=== PATIENT | male | born 1955 | race Caucasian/White ===

== ENCOUNTER 2016-05-27 10:59 | Inpatient (IN) ==
[2016-05-27] MEDS ORDERED: Ipratropium/Albuterol Neb 3 ML IH ONE (11:28)
[2016-05-27] MEDS ORDERED: 0.9 % Sodium Chloride 1,000 ML IVC ONE (11:28)
[2016-05-27] MEDS ORDERED: methylPREDNISolone 125 MG/2 ML VIAL IVP ONE (11:28)
--- NOTE | 2016-05-27 11:35 | Emergency Department Note ---
Disposition Clinical Impression: Acute exacerbation of chronic obstructive airways disease, Bronchitis, Hypoxia Disposition: Admitted As Inpatient Condition: Fair Referrals: NO,PCP [Primary Care Provider] - Forms: ED Satisfaction Letter Time of Disposition: 14:03 SOB HPI - General Chief Complaint: ED Shortness of Breath/Dyspnea Stated Complaint: SOB/Cough Time Seen by Provider: 05/27/16 11:12 Source: patient, EMS Mode of arrival: EMS Limitations: no limitations Nursing Notes Reviewed: Yes Vital Signs Reviewed: Yes - History of Present Illness Pt Subjective Complaint: shortness of breath, cough Onset (ago): month(s) (This is been going on for several months but is worsened over the past week after he quit smoking.) Severity: severe Consistency/Duration: constant, gradually worsening Improves with: nothing Worsens with: exertion, coughing Known history of: COPD Associated symptoms: Reports: chest pain (But he describes that as a soreness to the chest from coughing), fever (But has not taken his temperature with a thermometer.), cough, sputum production Treatment prior to arrival: none Cough present: Yes Cough Description: Productive Cough Frequency: Persistent - Related Data Home oxygen amount: none Allergies Allergy/AdvReac Type Severity Reaction Status Date / Time No Known Allergies Allergy Verified 05/27/16 11:00 All systems ED: reviewed and negative except as stated. Constitutional: Reports: fever, chills ENT ED: Denies: ear pain, throat pain, congestion Cardiovascular: Reports: chest pain (Soreness). Denies: palpitations Respiratory: Reports: cough, dyspnea, wheezes Gastrointestinal: Denies: abdominal pain, nausea, vomiting Musculoskeletal: Denies: back pain Integumentary: Denies: rash Neurological: Denies: headache Past Medical History - Past Medical History Attestation: Yes The following information was validated with the patient. Source: patient, nursing notes reviewed Medical history: Reports: COPD Surgical history: Reports: non-contributory Psychiatric history: Reports: no psych history - Social History Smoking Status: Former smoker Smokeless Tobacco Status: No Alcohol use: Reports: occasionally Drug use: Reports: none Physical Exam - General Limitations: no limitations General appearance: alert, in no apparent distress (Except frequent cough) - Head Head exam: atraumatic, normocephalic - Eye Eye exam: Present: normal appearance, PERRL, EOMI - ENT ENT exam: normal exam, normal oropharynx, mucous membranes moist, normal external ear exam - Neck Neck exam: Present: normal inspection, full ROM, trachea midline - Chest Chest inspection: Present: normal inspection, symmetric chest wall rise, tenderness (There is tenderness across the anterior chest.) - Respiratory Respiratory exam: Present: wheezes (Mild scattered). Absent: respiratory distress - Cardiovascular Cardiovascular exam: Present: regular rate, normal rhythm, normal heart sounds - Abdominal Exam Abdominal exam: Present: soft, Non-Tender, normal bowel sounds - Extremities Exam Extremities exam: Present: normal inspection, full ROM. Absent: pedal edema - Back Exam Back exam: Present: normal inspection, full ROM - Neurological Exam Neurological exam: Present: alert, oriented X3 - Psychiatric Psychiatric exam: Present: normal affect, normal mood - Skin Skin exam: Present: warm, dry. Absent: rash Course Course Narrative: Patient presents with cough and shortness of breath. He is a heavy smoker who quit within the last week. I am doing a shortness of breath workup on the patient. I will get him some breathing treatments as well. Disposition will be based on diagnostic results and reevaluation. - Reevaluation(s) Reevaluation #1: Labs and x-ray look okay. However we got the patient up to ambulate and his sats dropped to 82% and his heart rate went up to the 125 range. He appeared short of breath. We will need to admit him for bronchitis with bronchospasm and hypoxia. Time: 14:03 - Consultations Consultation #1: I discussed the case with the hospitalist, Dr. Woody. She has accepted the patient for admission to the hospital. Time: 14:12 Vital Signs Temperature 98.5 F 05/27/16 11:01 Pulse Rate 89 05/27/16 11:01 Respiratory Rate 16 05/27/16 11:01 Blood Pressure 137/84 05/27/16 11:01 O2 Sat by Pulse Oximetry 92 L 05/27/16 11:01 Temperature 98.5 F 05/27/16 11:01 Pulse Rate 90 05/27/16 13:05 Respiratory Rate 16 05/27/16 13:05 Blood Pressure 154/78 05/27/16 13:05 O2 Sat by Pulse Oximetry 93 L 05/27/16 13:05 Oxygen Delivery Oxygen Delivery Nasal Cannula Shortness of Breath/Dyspnea - Lab Data Lab results reviewed: Yes I reviewed the patient's lab results. Result diagrams: 05/27/16 12:24 05/27/16 12:24 Lab Results 05/27/16 05/27/16 05/27/16 Range/Units 12:24 12:24 12:24 WBC 16.5 H (4.3-11.1) K/mcL RBC 5.01 (4.19-5.50) M/mcL Hgb 15.3 (12.9-16.9) g/dL Hct 46.3 (37.5-50.1) % MCV 92.4 (83.0-100.0) fL MCH 30.5 (28.0-33.3) pg MCHC 33.0 (31.6-35.5) g/dL RDW 12.5 (11.5-14.5) % Plt Count 299 (140-400) K/mcL MPV 9.3 L (9.4-12.4) fL Seg Neutrophils % 64.0 % Band Neutrophils % 12.0 H (0-4) % Lymphocytes % 10.0 % Monocytes % 14.0 % Neutrophils # 12.5 H (1.6-8.9) K/mcL Lymphocytes # 1.7 (0.6-4.6) K/mcL Monocytes # 2.3 H (0.0-1.3) K/mcL Smudge Cells Present A (Not Present) Platelet Estimate Normal (Normal) Sodium 139 (136-145) mEq/L Potassium 3.9 (3.5-4.5) mEq/L Chloride 103 (98-109) mEq/L Carbon Dioxide 27 (19-29) mEq/L BUN 10 (8-26) mg/dL Creatinine 0.93 (0.72-1.25) mg/dL Est GFR ( Amer) > 60 (> 60) Est GFR (Non-Af Amer) > 60 (> 60) BUN/Creatinine Ratio 11 (6-26) Glucose 126 H (70-99) mg/dL Calculated Osmolality 289 (280-300) Calcium 9.8 (8.6-10.8) mg/dL Troponin I 0.01 (0-0.03) ng/mL B-Natriuretic Peptide (0-100) pg/mL 05/27/16 Range/Units 12:25 WBC (4.3-11.1) K/mcL RBC (4.19-5.50) M/mcL Hgb (12.9-16.9) g/dL Hct (37.5-50.1) % MCV (83.0-100.0) fL MCH (28.0-33.3) pg MCHC (31.6-35.5) g/dL RDW (11.5-14.5) % Plt Count (140-400) K/mcL MPV (9.4-12.4) fL Seg Neutrophils % % Band Neutrophils % (0-4) % Lymphocytes % % Monocytes % % Neutrophils # (1.6-8.9) K/mcL Lymphocytes # (0.6-4.6) K/mcL Monocytes # (0.0-1.3) K/mcL Smudge Cells (Not Present) Platelet Estimate (Normal) Sodium (136-145) mEq/L Potassium (3.5-4.5) mEq/L Chloride (98-109) mEq/L Carbon Dioxide (19-29) mEq/L BUN (8-26) mg/dL Creatinine (0.72-1.25) mg/dL Est GFR ( Amer) (> 60) Est GFR (Non-Af Amer) (> 60) BUN/Creatinine Ratio (6-26) Glucose (70-99) mg/dL Calculated Osmolality (280-300) Calcium (8.6-10.8) mg/dL Troponin I (0-0.03) ng/mL B-Natriuretic Peptide 23 (0-100) pg/mL - Radiology Data Radiology results reviewed: Yes I reviewed the patient's radiology results. - EKG Data EKG attestation: Yes I reviewed and interpreted this EKG. EKG shows normal: Reports: sinus rhythm, axis, intervals, QRS complexes, ST-T waves Rate: Reports: normal Interpretation: Reports: no acute changes
[2016-05-27 12:35] LABS: Hematocrit 46.3 % (37.5-50.1); Hemoglobin 15.3 g/dL (12.9-16.9); Mean Corpuscular Hemoglobin 30.5 pg (28.0-33.3); Mean Corpuscular Volume 92.4 fL (83.0-100.0); Mean Platelet Volume 9.3 fL (9.4-12.4); Platelet Count 299 K/mcL (140-400); Red Blood Count 5.01 M/mcL (4.19-5.50); Red Cell Distribution Width 12.5 % (11.5-14.5)
[2016-05-27 12:47] LABS: BUN/Creatinine Ratio 11 (6-26); Blood Urea Nitrogen 10 mg/dL (8-26); Calcium 9.8 mg/dL (8.6-10.8); Carbon Dioxide 27 mEq/L (19-29); Chloride 103 mEq/L (98-109); Glucose 126 mg/dL (70-99); Osmolality,Calculated 289 (280-300); Potassium 3.9 mEq/L (3.5-4.5); Sodium 139 mEq/L (136-145); eGFR For African Americans > 60 (> 60); eGFR For Non-African Americans > 60 (> 60)
[2016-05-27 12:57] LABS: Lymphocytes # 1.7 K/mcL (0.6-4.6); Monocytes # 2.3 K/mcL (0.0-1.3); Neutrophils # 12.5 K/mcL (1.6-8.9); Platelet Estimate Normal (Normal); Smudge Cells Present (Not Present)
[2016-05-27] MEDS ORDERED: Levofloxacin 750 MG/150 ML 750 MG/150 ML BAG IVPB ONE (14:01)
--- NOTE | 2016-05-27 17:19 | Internal Med History&Physical ---
Date of Encounter: 05/27/16 Time of Encounter: 17:16 Assessment and Plan (1) PVD (peripheral vascular disease) Current visit: Yes Status: Acute Pedal pulsations intact. Continue aspirin. (2) Acute exacerbation of chronic obstructive airways disease Current visit: Yes Status: Acute Patient would be started on Solu-Medrol [id number] nebulizer treatments. He is having 12% bands and the white count of 16,000. No obvious infiltrate on chest x-ray. He will receive Levaquin for acute bronchitis. Repeat to view x- ray after hydration in the ER to reassess for pneumonia. He is having a nodular density in the right costophrenic angle outpatient follow-up with CT scan Internal Medicine - H&P: HPI Chief complaint: SOB History of present illness: Mr. Bolton is a 61 year old male with a history of PVD s/p bypass and COPD not one home o2 and not receiving any inhalers because he could not afford, who had stopped smoking 10 days ago them presents to the emergency room today with the main complain of shortness of breath. For the past few days patient has been having productive cough of yellowish sputum worsening shortness of breath to the point where he is short of breath even addressed in addition to notable chest wheezing chills. He denies any recent hospitalization. No recent antibiotic use. Past Med Surg Social Fam HX - Past Medical History Medical history: COPD Psychiatric history: no psych history - Past Surgical History Surgical History: non-contributory - Social History Smoking Status: Former smoker Smokeless Tobacco Status: No Alcohol use: occasionally Drug use: none - Family History Mother Living Status: Age at : 70 Cause of : Cancer Hx Family Cardiac Disorders: No Hx Family Cancer: Yes (Brain cancer) Father Living Status: Age at : 55 Cause of : Lung Cancer Hx Family Cardiac Disorders: Yes Hx Family Cancer: Yes Internal Medicine - H&P: Meds Allergies No Known Allergies Allergy (Verified 05/27/16 11:00) All Systems PM: A 10-system review of systems was performed and is negative for pertinent findings except as documented above in the HPI. Review of systems: 10 point review of systems is negative except for HPI - Constitutional Vitals: Temp Pulse Resp BP Pulse Ox 98.8 F 84 18 121/73 91 L 05/27/16 15:02 05/27/16 15:02 05/27/16 15:02 05/27/16 15:02 05/27/16 15:02 Exam: Gen.: patient is alert and oriented times 3 not in distress. Cardiac: normal S1 S2 no additional sounds or murmur. Chest: Diminished air entry, expiratory wheezing abdomen: soft nontender nondistended normal bowel sounds no focal neurological deficits lower extremity lax calf muscles no swelling, intact pedal pulsations Internal Med - H&P Results - Labs CBC & Chem 7: 05/27/16 12:24 05/27/16 12:24
[2016-05-27] MEDS ORDERED: Ipratropium/Albuterol Neb 3 ML IH PRN (17:22)
[2016-05-27] MEDS: methylPREDNISolone 125 MG/2 ML VIAL IVP SCH (17:55)
[2016-05-27] MEDS: Ipratropium/Albuterol Neb 3 ML IH SCH ×2 (20:16→23:44)
--- NOTE | 2016-05-27 20:37 | Electrocardiograph Report ---
[facility] [employer] Test Date: 2016-05-27 Pat Name: Lloyd Bolton Department: 104 Room: 3B23 Gender: M Director Payer: : 1955 Requested By: Balbir Hurtado Order Number: [id number] Reading MD: Slime Salmeron DO Measurements Intervals [place] Rate: 90 P: 80 MD: 144 QRS: 49 QRSD: 80 T: 76 QT: 325 QTc: 372 Interpretive Statements SINUS RHYTHM Electronically Signed On 05-27-2016 20:36:08 EST by Slime Salmeron DO
[2016-05-27] MEDS: *HR* Heparin 5,000 UNIT/ML VIAL SQ SCH (21:43)
[2016-05-27] MEDS: Famotidine 20 MG TABLET PO SCH (21:43)
[2016-05-28] MEDS: methylPREDNISolone 125 MG/2 ML VIAL IVP SCH ×4 (00:14→17:07)
[2016-05-28] MEDS: *HR* OxyCODONE/APAP 5/325 TABLET PO PRN ×3 (00:14→20:43)
[2016-05-28] MEDS: Ipratropium/Albuterol Neb 3 ML IH SCH ×6 (04:12→23:47)
[2016-05-28 04:40] LABS: Basophils % 0.1 %; Hematocrit 44.2 % (37.5-50.1); Hemoglobin 14.7 g/dL (12.9-16.9); Immature Granulocytes % 0.8 % (0-4); Lymphocytes # 1.2 K/mcL (0.6-4.6); Lymphocytes % 7.4 %; Mean Corpuscular HGB Conc 33.3 g/dL (31.6-35.5); Mean Corpuscular Hemoglobin 30.2 pg (28.0-33.3); Mean Corpuscular Volume 90.9 fL (83.0-100.0); Mean Platelet Volume 9.9 fL (9.4-12.4); Monocytes # 0.4 K/mcL (0.0-1.3); Monocytes % 2.8 %; Neutrophils # 13.9 K/mcL (1.6-8.9); Platelet Count 320 K/mcL (140-400); Red Blood Count 4.86 M/mcL (4.19-5.50); Red Cell Distribution Width 12.4 % (11.5-14.5); Segmented Neutrophils % 88.9 %
[2016-05-28 05:03] LABS: BUN/Creatinine Ratio 15 (6-26); Blood Urea Nitrogen 14 mg/dL (8-26); Calcium 10.3 mg/dL (8.6-10.8); Carbon Dioxide 21 mEq/L (19-29); Chloride 102 mEq/L (98-109); Glucose 227 mg/dL (70-99); Osmolality,Calculated 294 (280-300); Sodium 138 mEq/L (136-145); eGFR For African Americans > 60 (> 60); eGFR For Non-African Americans > 60 (> 60)
[2016-05-28 05:43] LABS: Hypersegmented Neutrophils Present (Not Present); Platelet Clumps Few (Not Present); Toxic Granulation Present (Not Present)
[2016-05-28] MEDS: *HR* Heparin 5,000 UNIT/ML VIAL SQ SCH ×2 (06:25→17:07)
[2016-05-28] MEDS: Aspirin Enteric Coated 81 MG Tablet PO SCH (07:59)
[2016-05-28] MEDS: Famotidine 20 MG TABLET PO SCH ×2 (08:00→20:43)
[2016-05-28] MEDS: Levofloxacin 750 MG/150 ML 750 MG/150 ML BAG IVPB SCH (08:02)
[2016-05-28] MEDS ORDERED: Aspirin Enteric Coated 325 MG Tablet PO SCH (09:00)
[2016-05-28] MEDS ORDERED: *HR* Acetaminophen w/Cod 300-30 mg 1 TAB TABLET PO PRN (10:59)
--- NOTE | 2016-05-28 11:01 | Internal Med Progress Note ---
Date of Encounter: 05/28/16 Time of Encounter: 09:00 - Assessment and plan (1) Acute exacerbation of chronic obstructive airways disease Current Visit: Yes Status: Acute Assessment and plan: Former heavy smoker. Aeration poor with moderate respiratory distress noted. Continue supplemental oxygenation. Mucolytic's added to his regimen. Continue levofloxacin. Leukocytosis trending down. Chest x-ray negative however did reveal nodules given his lengthy and heavy smoking history, will obtain a chest CT. Tessalon Perles and pain medication added. Patient endorsing pain with persistent coughing. ITS Impressions Chest X-Ray 05/27/16 11:29 IMPRESSION: 1. No acute radiographic finding to account for patient's shortness of breath. 2. Nodular density in the right lateral costophrenic sulcus. Recommend CT of the chest for further evaluation to exclude a lung nodule. 3. Emphysema D/ / Johny Jones MD / Johny Jones MD Interpreting Provider: Johny Jones MD (2) Bronchitis Current Visit: Yes Status: Acute (3) Former heavy tobacco smoker Current Visit: Yes Status: Chronic Assessment and plan: Patient stating he originally smoked 2-3 packs per day then approximately one year ago he went down to 1 pack per day, he currently states that he has not smoked in 10 days. (4) Leukocytosis Current Visit: Yes Status: Acute Assessment and plan: Suspect stress related/viral bronchitis. No indications of sepsis. (5) Insurance coverage problems Current Visit: Yes Status: Acute Assessment and plan: Patient stating he does not currently have insurance. He states he cannot afford any COPD medications. support services manager on board. (6) Acute respiratory failure with hypoxia Current Visit: Yes Status: Acute Assessment and plan: Continue supplemental oxygenation as needed, suspect patient will need to go home with oxygen, we will continue to monitor (7) PVD (peripheral vascular disease) Current Visit: Yes Status: Chronic Assessment and plan: Distal pulses strong. - Subjective Interval history: Patient seen and examined. On examination, patient is sitting upright in bed. Patient stating he has full body shaking that is uncontrollable. Patient stating he is shaking "like when I used to drink a bottle." He states he has not consumed alcohol recently. Patient continues to endorse productive cough and shortness of breath above his norm. - Constitutional Vitals: Temp Pulse Resp BP Pulse Ox 97.4 F L 89 16 127/63 89 L 05/28/16 07:04 05/28/16 07:04 05/28/16 07:36 05/28/16 07:04 05/28/16 07:36 General appearance: Present: mild distress (moderate), A&O X 3, pleasant, answers questions appropriately - Head Head exam: Present: atraumatic, normocephalic - Eye Eye exam: Present: PERRL, conjuntiva pink, sclera anicteric Pupils: Present: PERRL - Neck Neck exam general surgery: Present: supple, trachea midline. Absent: lymphadenopathy - Respiratory Respiratory exam: Present: accessory muscle use, decreased breath sounds, prolonged expiratory phase, respiratory distress, wheezes. Absent: rales, rhonchi - Cardiovascular Cardiovascular exam: Present: RRR, +S1, +S2, tachycardia. Absent: diastolic murmur, gallop, rubs, systolic murmur - GI/Abdominal GI/Abdominal exam: Present: normal bowel sounds, soft, no peritoneal signs. Absent: distended, tenderness - Extremities Exam Extremities exam: Present: warm, radial pulses palpable and symetrical. Absent : calf tenderness, cyanotic, pedal edema - Neurological Exam Neurological exam: Present: alert, CN II-XII intact, oriented X3, no focal deficits, strengths equal and symetr throughout. Absent: pronater drift, facial droop, speech deficit - Expanded Neurological Exam Neurological exam expanded: Present: tremor - Skin Skin exam: Present: dry, intact, pallor, warm Internal Medicine: Result - Labs CBC & Chem 7: 05/28/16 03:52 05/28/16 03:52 Labs: Short CBC 05/28/16 Range/Units 03:52 WBC 15.6 H (4.3-11.1) K/mcL Hgb 14.7 (12.9-16.9) g/dL Hct 44.2 (37.5-50.1) % Plt Count 320 (140-400) K/mcL Neutrophils # 13.9 H (1.6-8.9) K/mcL BMP 05/28/16 03:52 Sodium 138 Potassium 4.0 Chloride 102 Carbon Dioxide 21 BUN 14 Creatinine 0.93 Glucose 227 H Calcium 10.3 Cardiac Enzymes 05/28/16 Range/Units 03:52 Troponin I 0.00 (0-0.03) ng/mL Consult Discharge Plan - Plan Referrals: NO,PCP [Primary Care Provider] -
[2016-05-28] MEDS: clonazePAM 0.5 MG TABLET PO SCH ×2 (13:06→20:43)
[2016-05-28] MEDS: Benzonatate 100 MG CAPSULE PO SCH ×2 (17:07→20:43)
[2016-05-29] MEDS: *HR* Heparin 5,000 UNIT/ML VIAL SQ SCH ×4 (00:18→22:14)
[2016-05-29] MEDS: methylPREDNISolone 125 MG/2 ML VIAL IVP SCH ×4 (00:18→17:38)
[2016-05-29 00:51] LABS: Hemoglobin A1C 5.3 %
[2016-05-29] MEDS: Ipratropium/Albuterol Neb 3 ML IH SCH ×6 (03:48→23:34)
[2016-05-29] MEDS: Levofloxacin 750 MG/150 ML 750 MG/150 ML BAG IVPB SCH (08:46)
[2016-05-29] MEDS: Aspirin Enteric Coated 81 MG Tablet PO SCH (08:47)
[2016-05-29] MEDS: Benzonatate 100 MG CAPSULE PO SCH ×3 (08:47→20:33)
[2016-05-29] MEDS: Famotidine 20 MG TABLET PO SCH ×2 (08:47→20:33)
[2016-05-29] MEDS: clonazePAM 0.5 MG TABLET PO SCH ×2 (08:47→20:34)
[2016-05-29] MEDS: *HR* OxyCODONE/APAP 5/325 TABLET PO PRN ×3 (08:48→22:15)
--- NOTE | 2016-05-29 12:35 | Internal Med Progress Note ---
Date of Encounter: 05/29/16 Time of Encounter: 08:45 - Assessment and plan (1) Acute exacerbation of chronic obstructive airways disease Current Visit: Yes Status: Acute Assessment and plan: Chest CT revealing severe emphysema as well as chronic scarring. No acute processes. Yesterday, posterior lung bravo did not reveal any aeration on examination. Today, few scattered coarse expiratory wheezes are present. Patient stating he feels as if he can take deeper breaths. He remains on 2 L per nasal cannula, we will likely need to go home on oxygen. Spoke to case management social worker today, it does appear as if he has insurance at this time. We will continue pulmonary toilet and observe overnight. Possible discharge tomorrow or Thursday pending clinical outcomes. ITS Impressions Chest CT 05/28/16 12:15 IMPRESSION: 1. Severe emphysematous changes. 2. Chronic appearing scarring or atelectasis is noted at the right lung base and to a lesser extent left lung base as well as in the posterior upper lobe regions. The right lung base opacity likely explains the finding at chest x-ray. D/ / Harjinder Pratt MD / Harjinder Pratt MD Interpreting Provider: Harjinder Pratt MD 05/28/16 Former heavy smoker. Aeration poor with moderate respiratory distress noted. Continue supplemental oxygenation. Mucolytic's added to his regimen. Continue levofloxacin. Leukocytosis trending down. Chest x-ray negative however did reveal nodules given his lengthy and heavy smoking history, will obtain a chest CT. Tessalon Perles and pain medication added. Patient endorsing pain with persistent coughing. ITS Impressions Chest X-Ray 05/27/16 11:29 IMPRESSION: 1. No acute radiographic finding to account for patient's shortness of breath. 2. Nodular density in the right lateral costophrenic sulcus. Recommend CT of the chest for further evaluation to exclude a lung nodule. 3. Emphysema D/ / Johny Jones MD / Johny Jones MD Interpreting Provider: Johny Jones MD (2) Bronchitis Current Visit: Yes Status: Acute (3) Former heavy tobacco smoker Current Visit: Yes Status: Chronic Assessment and plan: Patient stating he originally smoked 2-3 packs per day then approximately one year ago he went down to 1 pack per day, he currently states that he has not smoked in 10 days. (4) Leukocytosis Current Visit: Yes Status: Acute Assessment and plan: Suspect stress related/viral bronchitis. No indications of sepsis. (5) Insurance coverage problems Current Visit: Yes Status: Acute Assessment and plan: Preliminarily it appears as if he does have insurance. Will write for COPD medications today to start the process as I suspect he will need several prior authorizations. oil well services dispatcher on board. (6) Acute respiratory failure with hypoxia Current Visit: Yes Status: Acute Assessment and plan: Continue supplemental oxygenation as needed, suspect patient will need to go home with oxygen, we will continue to monitor (7) PVD (peripheral vascular disease) Current Visit: Yes Status: Chronic Assessment and plan: Distal pulses strong. - Subjective Interval history: Patient seen and examined. On examination, patient is sitting upright in bed. Patient stating he has full body shaking has gotten better. Patient is sitting in shortness of breath is improving and feels as if he can "breathe deeper" then yesterday. He is endorsing a normal appetite. - Constitutional Vitals: Temp Pulse Resp BP Pulse Ox 97.3 F L 60 18 117/65 94 L 05/29/16 11:54 05/29/16 11:54 05/29/16 11:54 05/29/16 11:54 05/29/16 11:54 General appearance: Present: mild distress, A&O X 3, pleasant, answers questions appropriately - Head Head exam: Present: atraumatic, normocephalic - Eye Eye exam: Present: PERRL, conjuntiva pink, sclera anicteric Pupils: Present: PERRL - Neck Neck exam general surgery: Present: supple, trachea midline. Absent: lymphadenopathy - Respiratory Respiratory exam: Present: accessory muscle use, decreased breath sounds, prolonged expiratory phase, respiratory distress, wheezes. Absent: rales, rhonchi - Cardiovascular Cardiovascular exam: Present: RRR, +S1, +S2. Absent: diastolic murmur, gallop, rubs, systolic murmur - GI/Abdominal GI/Abdominal exam: Present: normal bowel sounds, soft, no peritoneal signs. Absent: distended, tenderness - Extremities Exam Extremities exam: Present: warm, radial pulses palpable and symetrical. Absent : calf tenderness, cyanotic, pedal edema - Neurological Exam Neurological exam: Present: alert, CN II-XII intact, oriented X3, no focal deficits, strengths equal and symetr throughout. Absent: pronater drift, facial droop, speech deficit - Skin Skin exam: Present: dry, intact, normal color, warm Internal Medicine: Result - Labs CBC & Chem 7: 05/28/16 03:52 05/28/16 03:52 Consult Discharge Plan - Plan Referrals: NO,PCP [Primary Care Provider] -
--- NOTE | 2016-05-29 12:41 | Discharge Summary ---
Date of Encounter: 05/30/16 Time of Encounter: 09:30 - Discharge Diagnosis (1) Acute exacerbation of chronic obstructive airways disease Priority: Primary Status: Acute Comments: Chest CT revealing severe emphysema as well as chronic scarring. No acute processes. His aeration has improved quite a bit over the course of his 4 day admission. He did qualify for continuous oxygen at home. He does have insurance and his medications will be prior authorized today if possible. (2) Bronchitis Priority: Primary Status: Acute (3) Former heavy tobacco smoker Priority: Secondary Status: Chronic Comments: Patient stating he originally smoked 2-3 packs per day then approximately one year ago he went down to 1 pack per day, he stated that he has not smoked in the 10 days prior to presentation. (4) Leukocytosis Priority: Primary Status: Acute Comments: Suspect stress related/viral bronchitis. Trended down. No indications of sepsis. Qualifiers: Leukocytosis type: unspecified Qualified Code(s): D72.829 - Elevated white blood cell count, unspecified (5) Insurance coverage problems Priority: Primary Status: Acute Comments: (Preliminarily it appears as if he does have insurance. client services associate on board during this admission. (6) Acute respiratory failure with hypoxia Priority: Primary Status: Acute Comments: He qualified for 2 L per nasal cannula continuously at home (7) PVD (peripheral vascular disease) Priority: Secondary Status: Chronic Comments: Distal pulses strong, follow-up outpatient. - Discharge Medications Prescriptions: OxyCODONE/APAP 5/325 [Percocet 5/325 MG] 1 each PO Q6HR PRN #20 tablet PRN Reason: Pain Budesonide/Formoterol 160/4.5 [Symbicort 160/4.5] 2 puff IH BIDR #1 hfa.aer.ad ClonazePAM [Klonopin] 0.5 mg PO BID PRN #14 tablet PRN Reason: Anxiety Guaifenesin [Guaifenesin ER] 1,200 mg PO BID #14 tab.er.12h Levofloxacin 750 mg PO DAILY #2 tablet Oxygen 2 l IN CONT #1 each PredniSONE 10 mg PO DAILY #41 tablet Home Medications: Acetaminophen [Tylenol Arthritis] 650 mg PO BID PRN 05/28/16 [History] Aspirin/Calcium Carbonate/Mag [Aspirin Buffered 325 mg Tab] 325 mg PO DAILY [History] Melatonin/Pyridoxine HCl (B6) [Melatonin 5 mg Tablet] 10 mg PO HS PRN 05/28/16 [ History] Multivit-Min/FA/Lycopen/Lutein [Centrum Silver Men Tablet] 1 tab PO DAILY [History] [place]-3/Dha/Epa/Fish Oil [Fish Oil 1,000 mg Softgel] 1,000 mg PO DAILY 05/28/16 [History] Budesonide/Formoterol 160/4.5 [Symbicort 160/4.5] 2 puff IH BIDR #1 hfa.aer.ad 05/29/16 [Rx] Guaifenesin [Guaifenesin ER] 1,200 mg PO BID #14 tab.er.12h 05/29/16 [Rx] Oxygen 2 l IN CONT #1 each 05/29/16 [Rx] PredniSONE 10 mg PO DAILY #41 tablet 05/29/16 [Rx] ClonazePAM [Klonopin] 0.5 mg PO BID PRN #14 tablet 05/30/16 [Rx] Levofloxacin 750 mg PO DAILY #2 tablet 05/30/16 [Rx] OxyCODONE/APAP 5/325 [Percocet 5/325 MG] 1 each PO Q6HR PRN #20 tablet 05/30/16 [Rx] Allergies/Adverse Reactions: Allergies No Known Allergies Allergy (Verified 05/27/16 11:00) Procedures/tests Complete & Pending: Procedures Performed prior 72 hours Category Date Time Status CT chest w con [CT] Routine Cat Scan 05/28/16 12:15 Completed Date of admission: 05/27/16 17:11 Primary care physician: PCP NO Consults: 05/27/16 15:31 Consult to Credentialing Coordinator [CONS] Routine Reason for SW Consult: Discharge planning, self pay, possible home O2, cannot afford COPD medications Discharging clinician: Marybeth Nguyen Anticipated date of discharge: 05/30/16 (with home oxygen) - Patient Status Disposition: Home, Self-Care Condition: Fair Functional capacity at discharge: independent ambulation Overall status at discharge: patient is progressing back to baseline - Discharge Instructions Follow Up With: Clinic, [facility] Residency [Other] Additional Instructions: Follow-up with new primary care provider in one to 2 weeks - Diet and Activity Activity: increase activity as tolerated Diet: low salt diet Hospital course: Mr. Bolton is a 61 year old male with past medical history of PVD status post bypass, COPD not on home medications as he does not have insurance and cannot afford the medications. Patient was a former heavy smoker and stated that he stopped smoking 10 days prior to presentation. He presented to the emergency room for chief complaint shortness of breath times several days associated with productive cough with yellowish sputum. Patient was noted to be hypoxic in the emergency department and started on supplemental oxygenation. Chest x-ray negative for acute processes but did note an abnormal density so a chest CT was performed which revealed severe emphysema and chronic scarring with no acute processes. Patient was admitted to the hospitalist service for further evaluation and management. He was treated for COPD exacerbation. Initially upon admission, his breath sounds were not audible in the posterior lung field. He was admitted and observed over the course of 4 days and on day of discharge , his aeration had improved greatly. Mild leukocytosis that trended down. Blood cultures negative. He remained hemodynamically stable and did not indicate any signs of acute infection or sepsis during this admission. Social work was brought on board and the patient now apparently does have insurance. He did qualify for supplemental oxygenation upon discharge. He was started on controller medications and proper prior authorizations were attempted on day of discharge. He was treated with 3 days of IV levofloxacin while admitted and sent home with 2 additional doses to complete a 5 day course for his exacerbation. He was discharged home in stable condition with close outpatient follow-up recommended. ITS Impressions Chest X-Ray 05/27/16 11:29 IMPRESSION: 1. No acute radiographic finding to account for patient's shortness of breath. 2. Nodular density in the right lateral costophrenic sulcus. Recommend CT of the chest for further evaluation to exclude a lung nodule. 3. Emphysema D/ / Johny Jones MD / Johny Jones MD Interpreting Provider: Johny Jones MD Chest CT 05/28/16 12:15 IMPRESSION: 1. Severe emphysematous changes. 2. Chronic appearing scarring or atelectasis is noted at the right lung base and to a lesser extent left lung base as well as in the posterior upper lobe regions. The right lung base opacity likely explains the finding at chest x-ray. D/ / Harjinder Pratt MD / Harjinder Pratt MD Interpreting Provider: Harjinder Pratt MD - Time Spent with Patient Total time spent providing and/or coordinating discharge services: - Constitutional Vitals: Temp Pulse Resp BP Pulse Ox 97.3 F L 60 18 117/65 94 L 05/29/16 11:54 05/29/16 11:54 05/29/16 11:54 05/29/16 11:54 05/29/16 11:54 General appearance: Present: A&O X 3, pleasant, no acute distress, answers questions appropriately - Head Head exam: Present: atraumatic, normocephalic - Eye Eye exam: Present: PERRL, conjuntiva pink, sclera anicteric Pupils: Present: PERRL - Neck Neck exam general surgery: Present: supple, trachea midline. Absent: lymphadenopathy - Respiratory Respiratory exam: Present: accessory muscle use, decreased breath sounds, prolonged expiratory phase, wheezes. Absent: rales, respiratory distress, rhonchi - Cardiovascular Cardiovascular exam: Present: RRR, +S1, +S2. Absent: diastolic murmur, gallop, rubs, systolic murmur - GI/Abdominal GI/Abdominal exam: Present: normal bowel sounds, soft, no peritoneal signs. Absent: distended, tenderness - Extremities Exam Extremities exam: Present: warm, radial pulses palpable and symetrical. Absent : calf tenderness, cyanotic, pedal edema - Neurological Exam Neurological exam: Present: alert, CN II-XII intact, normal gait, oriented X3, no focal deficits, strengths equal and symetr throughout. Absent: pronater drift, facial droop, speech deficit - Skin Skin exam: Present: dry, intact, normal color, warm
[2016-05-29] MEDS ORDERED: Water for inj. (sterile) 10 ML IV ONE (17:36)
[2016-05-30] MEDS: methylPREDNISolone 125 MG/2 ML VIAL IVP SCH ×3 (00:23→14:11)
[2016-05-30] MEDS: Ipratropium/Albuterol Neb 3 ML IH SCH ×3 (03:33→11:25)
[2016-05-30] MEDS: *HR* OxyCODONE/APAP 5/325 TABLET PO PRN (06:21)
[2016-05-30] MEDS: *HR* Heparin 5,000 UNIT/ML VIAL SQ SCH ×2 (06:24→14:11)
[2016-05-30] MEDS: Levofloxacin 750 MG/150 ML 750 MG/150 ML BAG IVPB SCH (09:01)
[2016-05-30] MEDS: Aspirin Enteric Coated 81 MG Tablet PO SCH (09:02)
[2016-05-30] MEDS: Famotidine 20 MG TABLET PO SCH (09:02)
[2016-05-30] MEDS: Benzonatate 100 MG CAPSULE PO SCH ×2 (09:02→14:11)
[2016-05-30] MEDS: clonazePAM 0.5 MG TABLET PO SCH (09:02)
[2016-05-30 11:34] VITALS: BP 110/62
[2016-05-31] MEDS ORDERED: levoFLOXacin 750 MG TABLET PO SCH (09:00)
== END 2016-05-30 14:58 | disposition home or self-care (01) | DRG 140 ==
LOC: 3BNU 10:59 → EMEROO 10:59 → 3BNU 14:48
PROVIDERS: ADMIT Internal Medicine; ATTEND Nurse Practitioner Family